=== PATIENT | female | born 1995 | race Caucasian/White ===

== ENCOUNTER → 2020-10-31 15:10 | Outpatient (BNVA) | payer OTHER, SELFPAY | PROVIDERS: PCP Internal Medicine; Visit Provider Obstetrics & Gynecology | DX: N92.6 Irregular menstruation, unspecified (principal); E66.01 Morbid (severe) obesity due to excess calories; Z68.41 Body mass index [BMI] 40.0-44.9, adult | CPT/HCPCS: 81025 ==

== ENCOUNTER 2020-11-03 | Outpatient (REF) | payer OTHER, SELFPAY | END 2020-11-03 00:01 | disposition home or self-care (01) | LOC: HO.LAB | PROVIDERS: Visit Provider Nurse Practitioner Family | DX: Z20.828 Contact with and (suspected) exposure to other viral communicable diseases (principal); J02.9 Acute pharyngitis, unspecified | CPT/HCPCS: 87071; 87147; 87880; U0003 ==